=== PATIENT | male | born 1995 | race Hispanic/Latino ===

== ENCOUNTER 2024-03-28 11:50 | Emergency (ER) | payer SELFPAY ==
[~2024-03-28] VITALS: Ht 170.2 cm; Wt 78.5 kg
[2024-03-28] MEDS ORDERED: [UNRECOGNIZED DRUG - CODE] TP (13:24)
[2024-03-28] MEDS ORDERED: ACET-66 PO (13:24)
[2024-03-28] MEDS ORDERED: DICL20GE TP (13:24)
[2024-03-28] MEDS ORDERED: IBUP-2070 PO (13:24)
[2024-03-28 13:50] VITALS: BP 123/78; PULSE 78; RESP 18; O2SAT 98
== END 2024-03-28 13:52 | disposition home or self-care (01) ==
LOC: EDH 11:50
DX: S96.912A Strain of unspecified muscle and tendon at ankle and foot level, left foot, initial encounter (principal); M72.2 Plantar fascial fibromatosis; X58.XXXA Exposure to other specified factors, initial encounter; Y93.89 Activity, other specified; Y92.89 Other specified places as the place of occurrence of the external cause; Y99.8 Other external cause status
CPT/HCPCS: 73630